=== PATIENT | male | born 1960 | race Caucasian/White ===

== ENCOUNTER 2017-03-20 06:05 | Day surgery (SDC) | payer OTHER ==
[2017-03-20] MEDS ORDERED: Lactated Ringers 1,000 ML IV SCH (07:00)
[2017-03-20] MEDS ORDERED: fentaNYL 100 MCG/2 ML SDV ONE (07:02)
[2017-03-20] MEDS ORDERED: Midazolam 1 MG/ML 2 ML SDV ONE (07:02)
[2017-03-20] MEDS ORDERED: Propofol 200 MG/20 ML SDV ONE (07:02)
[2017-03-20] MEDS ORDERED: Glycopyrrolate 0.2 MG/ML 2 ML SDV IVPUSH ONE (07:45)
--- NOTE | 2017-03-21 15:43 | OR ---
DATE OF PROCEDURE: 03/20/2017 PREOPERATIVE DIAGNOSIS: Laryngopharyngeal dysphagia. POSTOPERATIVE DIAGNOSES: 1. Laryngopharyngeal dysphagia without gross abnormalities in the larynx or pharynx. 2. Small hiatal hernia with mild gastroesophageal reflux disease. 3. Mild antral gastritis. OPERATIVE PROCEDURES: Esophagogastroduodenoscopy with; 1. Biopsies of esophagogastric junction for histologic evaluation. 2. Biopsies of antrum for CLOtest. ANESTHESIA: IV sedation. INDICATION FOR PROCEDURE: A 56-year-old male presenting with some intermittent laryngopharyngeal dysphagia. He has known history of gastroesophageal reflux disease along with Crohn disease. Presently, he is on Nexium 40 mg a day with generally good control of reflux symptoms. Plan is to proceed with an upper GI endoscopy with biopsies and/or dilation as indicated. Potential risks including bleeding and perforation were discussed, and the patient wishes to proceed. DETAILS OF PROCEDURE: The patient was taken to the operating room and placed in a left lateral decubitus position. After IV sedation was administered, the upper GI endoscope was passed orally through the length of the esophagus and into the stomach with retroflexion view of the fundus, and thereafter through the pyloric channel into the junction of the third and fourth portions of the duodenum. Findings included an entirely normal-appearing larynx and hypopharynx. The upper esophageal sphincter likewise was unremarkable, as was the esophageal body. At the EG junction, a small hiatal hernia was present. There was some slight upward extension of the gastroesophageal junction mucosal line above the upper gastric folds. No stricturing was present, i.e. there was no suggestion of any neoplastic change, and there was only mild inflammation grossly evident. Within the stomach, retroflexion confirmed a small hiatal hernia. Apart from that, there was some mild redness in the antral region of the stomach without erosions or ulcers. The pyloric channel and visualized portion of the duodenum were unremarkable. At this point, biopsies were obtained from the antrum and sent for CLOtest for H. pylori. Multiple biopsies had been obtained from esophagogastric junction and sent for histologic evaluation. Minimal bleeding from the biopsy sites was seen, and the procedure then concluded. There were no evident complications. The plan will be to have the patient continue the Nexium 40 mg a day. We will also set him up for x-ray swallow study and speech pathology evaluation for evaluation of the laryngopharyngeal dysphagia. Hugh Graham MD /[id number]
== END 2017-03-20 09:49 | disposition home or self-care (01) ==
LOC: JP.SDS 06:05
PROVIDERS: ATTEND Surgery
DX: K29.50 Unspecified chronic gastritis without bleeding (principal); K44.9 Diaphragmatic hernia without obstruction or gangrene; K21.9 Gastro-esophageal reflux disease without esophagitis; I12.9 Hypertensive chronic kidney disease with stage 1 through stage 4 chronic kidney disease, or unspecified chronic kidney disease; N18.9 Chronic kidney disease, unspecified; K59.09 Other constipation; F17.210 Nicotine dependence, cigarettes, uncomplicated; Z98.890 Other specified postprocedural states; Z90.49 Acquired absence of other specified parts of digestive tract
CPT/HCPCS: 43239; 87081; J2250; J2704; J3010; J7120; 88305; J3490

== ENCOUNTER 2019-11-07 14:28 | Emergency (ER) | payer OTHER ==
[2019-11-07] MEDS ORDERED: Lidocaine 1% with EPINEPHrine 1:100,000 50 ML MDV SUBCUT STA (16:13)
--- NOTE | 2019-11-07 16:40 | EDM.PDOC ---
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 he has had multiple boils in the past at this particular one was draining but now it is closed and is very painful he has not had any fevers Left Buttock Pain Score (Numeric/FACES): 8 - Related Data Allergies Allergy/AdvReac Type Severity Reaction Status Date / Time No Known Allergies Allergy Verified 11/07/19 15:37 Home Meds: Home Meds Esomeprazole [NexIUM] 40 mg PO DAILY 07/26/13 [History] Folic Acid 1 mg PO DAILY 07/26/13 [History] Lisinopril [Zestril] 5 mg PO DAILY 07/26/13 [History] Methotrexate Sodium [Methotrexate] 10 mg PO WEEKLY 07/26/13 [History] Adalimumab [Humira] 40 ml SQ .Q14DAY 03/18/17 [History] Cyanocobalamin (Vitamin B-12) [B-12] 1,000 mcg PO DAILY 03/18/17 [History] Vardenafil HCl [Levitra] 20 mg PO ASDIRECTED PRN 03/18/17 [History] Past Medical History HEENT History: Reports: Impaired Vision Other HEENT History: wears glasses Cardiovascular History: Reports: Hypertension Gastrointestinal History: Reports: Chronic Diarrhea, GERD, Other (See Below) Other Gastrointestinal History: Chrons Genitourinary History: Reports: Renal Calculus Musculoskeletal History: Reports: Arthritis Hematologic History: Reports: None Immunologic History: Reports: None Oncologic (Cancer) History: Reports: None Dermatologic History: Reports: Psoriasis - Infectious Disease History Infectious Disease History: Reports: Chicken Pox - Past Surgical History Head Surgeries/Procedures: Reports: None HEENT Surgical History: Reports: Oral Surgery, Tonsillectomy Cardiovascular Surgical History: Reports: None GI Surgical History: Reports: Appendectomy, Colonoscopy, Hernia, Inguinal, Hernia Repair/Other, Small Bowel, Other (See Below) Other GI Surgeries/Procedures: bowel resections r/t chrons Male Surgical History: Reports: Kidney Stone Extraction Musculoskeletal Surgical History: Reports: Arthroscopic Knee Dermatological Surgical History: Reports: Skin Biopsy Social & Family History - Tobacco Use Smoking Status *Q: Never Smoker Second Hand Smoke Exposure: No - Caffeine Use Caffeine Use: Reports: Coffee, Soda - Recreational Drug Use Recreational Drug Use: No ED ROS GENERAL - Review of Systems Review Of Systems: See Below Constitutional: Reports: No Symptoms Skin: Reports: Erythema, Wound ED EXAM, GENERAL - Physical Exam Exam: See Below Free Text/Narrative:: Examination of the buttocks reveals a large boil on the right gluteus eloina it is tender to touch warm to the touch ED I&D PROCEDURES - I&D Site: Right buttocks Skin prep: Isopropyl Alcohol (Alcohol) Local anesthesia - Lidocaine (Xylocaine): 1% with EPI Local Anesthetic Volume: 2cc Area Incised With: 11 Blade Drainage: Purulent, Large Amount Probed to Break Up Loculations: No Packed With: None Sterile Dressinx4(s) Complications: No Course - Vital Signs Last Recorded V/S: Last Vital Signs Temp 96.8 F L 11/07/19 15:41 Pulse 70 11/07/19 15:41 Resp 16 11/07/19 15:41 BP 137/83 11/07/19 15:41 Pulse Ox 98 11/07/19 15:41 - Orders/Labs/Meds Meds: Medications Discontinued Medications Generic Name Dose Route Start Last Admin Trade Name Sj PRN Reason Stop Dose Admin Lidocaine/Epinephrine 20 ml 11/07/19 16:13 11/07/19 16:18 Xylocaine 1% With Epinephrine 1:100,000 SUBCUT 11/07/19 16:14 20 ml NOW STA Administration Departure - Departure Time of Disposition: 16:39 Disposition: Home, Self-Care 01 Condition: Fair Clinical Impression: Boil of buttock - Discharge Information Instructions: Skin Abscess, [id number] Referrals: Domenico Hester MD [Primary Care Provider] - Additional Instructions: Take full course of antibiotics, try warm sits baths if possible, please followup with your primary care provider in 3-5 days if not better, please call return to the emergency department with worsening of symptoms. Sepsis Event Note (ED) - Evaluation Sepsis Screening Result: No Definite Risk - Focused Exam Vital Signs: Vital Signs Temp Pulse Resp BP Pulse Ox 11/07/19 15:41 96.8 F L 70 16 137/83 98 11/07/19 15:27 96.8 F L 70 16 137/83 98 - Assessment/Plan Plan: Assessment Acuity = acute Site and laterality = boil right buttock Etiology = unknown Manifestations = none Location of injury = Home Lab values = wound cultures pending Plan Placed on antibiotics of Keflex 500 mg p.o. 3 times daily follow-up primary care 3 to 5 days if no improvement This note was dictated using [employer] voice recognition software please call with any questions on syntax or grammar.
== END 2019-11-07 16:48 | disposition home or self-care (01) ==
LOC: JP.ED 14:28
DX: L02.32 Furuncle of buttock (principal); I10 Essential (primary) hypertension; Z79.899 Other long term (current) drug therapy
CPT/HCPCS: 10060; 87070; 87077; 87186; 87205; 99283-25

== ENCOUNTER 2020-11-07 22:56 | Day surgery (SDC) | payer OTHER ==
[2020-11-08] MEDS ORDERED: Glucagon,Human Recombinant 1 MG Vial IM ONE (01:00)
--- NOTE | 2020-11-08 01:04 | EDM.PDOC ---
ED HPI GENERAL MEDICAL PROBLEM - General Chief Complaint: Gastrointestinal Problem Stated Complaint: STEAK STUCK IN THROAT Time Seen by Provider: 11/08/20 00:59 Source of Information: Reports: Patient, RN Notes Reviewed History Limitations: Reports: No Limitations - History of Present Illness INITIAL COMMENTS - FREE TEXT/NARRATIVE: 60-year-old gentleman presents emergency department today with complaint of food bolus being caught in his throat, he was eating steak this evening this has happened before he has had an EGD with dilation in the past as well. He is able to swallow some secretions but the majority of it does come up - Related Data Allergies Allergy/AdvReac Type Severity Reaction Status Date / Time No Known Allergies Allergy Verified 11/08/20 00:47 Home Meds: Home Meds Esomeprazole [NexIUM] 40 mg PO DAILY 07/26/13 [History] Folic Acid 1 mg PO DAILY 07/26/13 [History] Lisinopril [Zestril] 5 mg PO DAILY 07/26/13 [History] Methotrexate Sodium [Methotrexate] 10 mg PO WEEKLY 07/26/13 [History] Adalimumab [Humira] 40 ml SQ .Q14DAY 03/18/17 [History] Cyanocobalamin (Vitamin B-12) [B-12] 1,000 mcg PO DAILY 03/18/17 [History] Vardenafil HCl [Levitra] 20 mg PO ASDIRECTED PRN 03/18/17 [History] Past Medical History HEENT History: Reports: Impaired Vision Other HEENT History: wears glasses Cardiovascular History: Reports: Hypertension Gastrointestinal History: Reports: Chronic Diarrhea, GERD, Other (See Below) Other Gastrointestinal History: crohns Genitourinary History: Reports: Renal Calculus Musculoskeletal History: Reports: Arthritis Hematologic History: Reports: None Immunologic History: Reports: None Oncologic (Cancer) History: Reports: None Dermatologic History: Reports: Psoriasis - Infectious Disease History Infectious Disease History: Reports: Chicken Pox - Past Surgical History HEENT Surgical History: Reports: Oral Surgery, Tonsillectomy GI Surgical History: Reports: Appendectomy, Colonoscopy, Esophageal Dilatation, Hernia, Inguinal, Hernia Repair/Other, Small Bowel, Other (See Below) Other GI Surgeries/Procedures: bowel resections x 3 r/t crohns Male Surgical History: Reports: Kidney Stone Extraction Musculoskeletal Surgical History: Reports: Arthroscopic Knee Dermatological Surgical History: Reports: Skin Biopsy Social & Family History - Tobacco Use Tobacco Use Status *Q: Current Every Day Tobacco User Years of Tobacco use: 20 Packs/Tins Daily: 0.5 - Caffeine Use Caffeine Use: Reports: Coffee, Soda - Alcohol Use Days Per Week of Alcohol Use: 7 Number of Drinks Per Day: 2 Total Drinks Per Week: 14 - Recreational Drug Use Recreational Drug Use: No ED ROS GENERAL - Review of Systems Review Of Systems: See Below Constitutional: Reports: No Symptoms Respiratory: Reports: No Symptoms Cardiovascular: Reports: No Symptoms GI/Abdominal: Reports: Difficulty Swallowing : Reports: No Symptoms ED EXAM, GI/ABD - Physical Exam Exam: See Below Text/Narrative:: I did have him take a small sip of ice water admit a portion of this did come back up but he was able to keep a portion of it and it passed Exam Limited By: No Limitations General Appearance: Alert, WD/WN, No Apparent Distress Respiratory/Chest: No Respiratory Distress Course - Vital Signs Last Recorded V/S: Last Vital Signs Temp 97.5 F 11/08/20 02:38 Pulse 75 11/08/20 04:34 Resp 17 11/08/20 04:34 BP 163/108 H 11/08/20 04:34 Pulse Ox 95 11/08/20 04:34 - Orders/Labs/Meds Orders: Active Orders 24 hr Category Date Time Status Patient Status [ADT] Routine ADT 11/08/20 06:19 Ordered Peripheral IV Care [RC] . DIRECTED Care 11/08/20 02:07 Active Sodium Chloride 0.9% [Saline Flush] Med 11/08/20 02:07 Active 10 ml FLUSH ASDIRECTED PRN Isolation [COMM] Stat Oth 11/08/20 03:40 Ordered Peripheral IV Insertion Adult [OM.PC] Urgent Oth 11/08/20 02:07 Ordered Medication Orders Sodium Chloride (Sodium Chloride 0.9% 10 Ml Syringe) 10 ml FLUSH ASDIRECTED PRN PRN Reason: Keep Vein Open Last Admin: 11/08/20 02:39 Dose: 10 ml Documented by: JOSELO Labs: Laboratory Tests 11/08/20 Range/Units 04:10 Influenza Type A RNA Negative (NEGATIVE) RSV RNA (INAAT) Negative (NEGATIVE) Influenza Type B RNA Negative (NEGATIVE) SARS-CoV-2 RNA (VICENTA) Negative (NEGATIVE) Meds: Medications Generic Name Dose Route Start Last Admin Trade Name Freq PRN Reason Stop Dose Admin Sodium Chloride 10 ml 11/08/20 02:07 11/08/20 02:39 Sodium Chloride 0.9% 10 Ml Syringe FLUSH 10 ml ASDIRECTED PRN Administration Keep Vein Open Discontinued Medications Generic Name Dose Route Start Last Admin Trade Name Freq PRN Reason Stop Dose Admin Glucagon 1 mg 11/08/20 01:00 11/08/20 01:19 Glucagon,Human Recombinant 1 Mg Vial IM 11/08/20 01:01 1 mg ONETIME ONE Administration Departure - Departure Time of Disposition: : Disposition: Still A Patient 30 Condition: Fair Clinical Impression: Dysphagia Qualifiers: Dysphagia type: unspecified Qualified Code(s): R13.10 - Dysphagia, unspecified - Discharge Information Instructions: Dysphagia Referrals: Domenico Hester MD [Primary Care Provider] - Forms: ED Department Discharge Sepsis Event Note (ED) - Evaluation Sepsis Screening Result: No Definite Risk - Focused Exam Vital Signs: Vital Signs Temp Pulse Resp BP Pulse Ox 11/08/20 04:34 75 17 163/108 H 95 11/08/20 02:38 97.5 F 89 20 172/107 H 97 11/08/20 00:51 97.6 F 75 16 181/104 H 97 11/08/20 00:47 97.6 F 75 16 97 - My Orders Last 24 Hours: My Active Orders 11/08/20 02:07 Peripheral IV Care [RC] . DIRECTED Sodium Chloride 0.9% [Saline Flush] 10 ml FLUSH ASDIRECTED PRN Peripheral IV Insertion Adult [OM.PC] Urgent 11/08/20 03:40 Isolation [COMM] Stat 11/08/20 06:19 Patient Status [ADT] Routine - Assessment/Plan Last 24 Hours: My Active Orders 11/08/20 02:07 Peripheral IV Care [RC] . DIRECTED Sodium Chloride 0.9% [Saline Flush] 10 ml FLUSH ASDIRECTED PRN Peripheral IV Insertion Adult [OM.PC] Urgent 11/08/20 03:40 Isolation [COMM] Stat 11/08/20 06:19 Patient Status [ADT] Routine Plan: Assessment Acuity = acute Site and laterality = dysphagia Etiology = probable food bolus Manifestations = none Location of injury = Home Lab values = none Plan Call discussed case Dr. Graham at 2:00 kindly agreed to come evaluate patient in the emergency department plan for EGD in the morning This note was dictated using [employer] voice recognition software please call with any questions on syntax or grammar.
[2020-11-08] MEDS ORDERED: Sodium Chloride 0.9% 10 ML Syringe FLUSH PRN (02:07)
[2020-11-08 05:23] LABS: CORONAVIRUS COVID-19 NAA NEGATIVE (NEGATIVE)
[2020-11-08] MEDS ORDERED: Propofol 200 MG/20 ML SDV ONE ×4 (06:58→08:23)
[2020-11-08] MEDS ORDERED: fentaNYL 100 MCG/2 ML SDV ONE (06:58)
[2020-11-08] MEDS ORDERED: Midazolam 1 MG/ML 2 ML SDV ONE (06:59)
[2020-11-08] MEDS ORDERED: Glycopyrrolate 0.2 MG/ML 2 ML SDV IV SCH (07:15)
[2020-11-08] MEDS ORDERED: Lactated Ringers 1,000 ML ONE (08:30)
--- NOTE | 2020-11-18 16:25 | OR ---
DATE OF PROCEDURE: 11/08/2020 SURGEON: Hugh Graham MD PREOPERATIVE DIAGNOSIS: Foreign body (meat) lodged within the distal esophagus. POSTOPERATIVE DIAGNOSES: 1. Foreign body (meat) lodged within the distal esophagus. 2. Esophageal stricture associated with large hiatal hernia. OPERATIVE PROCEDURES: Esophagogastroduodenoscopy with: 1. Removal of foreign body from distal esophagus (31374). 2. Dilation of esophageal stricture (61696). ANESTHESIA: IV sedation. INDICATIONS FOR PROCEDURE: A 60-year-old male presenting with some recurrent episodes of dysphagia and at this time has some meat lodged within the distal esophagus, presently has been on Nexium 40 mg a day and despite this, is having increasing bouts of esophageal stricturing. Plan is to proceed with upper endoscopy, removal of foreign body with biopsies and/or dilation of the area around the stricture. Potential risks including bleeding and perforation were discussed, and the patient wishes to proceed. DETAILS OF PROCEDURE: The patient was taken to the operative room and placed in the left lateral decubitus position. IV sedation was administered, after which the upper GI endoscope was passed orally through the length of the esophagus. In the distal esophagus, the patient was noted to have some aggregated meat, which was obstructing the outlet of the esophagus. This was removed by breaking this up and retrieving this sequentially with retrieval bags. Once we had enough of this removed, a guidewire could be passed across the stricture into the more distal stomach and with this we then passed initial 36-Tai[place]ese dilator. The gastroscope was then replaced after removing the dilator and wire and a small amount of retained food within the esophagus was then able to be pushed down into the stomach. The patient was noted to have a quite large hiatal hernia measuring around 5 cm. Remainder of the gastric and duodenal exams otherwise were unremarkable. At this point, guidewire was placed back into the stomach and the gastroscope removed. The esophagus was then further dilated with 39 followed by 42-Tai[place]ese Savary dilator over the wire. At that point, the procedure then concluded. It is notable that the patient's stricture was a fibrous type band uniform stricture suspicious for significant histologic abnormalities in terms of neoplastic change. The patient will be following up with Dr. Hester in 2 weeks. If over time, the patient has continued problems with the stricturing, he should likely be considered for a surgical anti- reflux procedure. An alternate approach at this point would be perhaps setting up for repeat endoscopy in 6 to 12 months to obtain full histologic examination and perhaps prophylactically dilate the esophagus at that time. Hugh Graham MD /[id number]
== END 2020-11-08 ==
LOC: JP.ED 22:56 → JP.SDS 11-08 07:00
PROVIDERS: ATTEND Surgery
DX: K22.2 Esophageal obstruction (principal); T18.120A Food in esophagus causing compression of trachea, initial encounter; K44.9 Diaphragmatic hernia without obstruction or gangrene; I10 Essential (primary) hypertension; F17.210 Nicotine dependence, cigarettes, uncomplicated; Z98.890 Other specified postprocedural states; Z79.899 Other long term (current) drug therapy; Z01.812 Encounter for preprocedural laboratory examination; Z20.822 Contact with and (suspected) exposure to COVID-19
CPT/HCPCS: 0241U; 43247; 43248; 96372; 99283; 99284; J1610; J2250; J2704; J3010; J3490; J7120

== ENCOUNTER 2023-01-21 09:37 | Emergency (ER) | payer SELFPAY ==
[2023-01-21] MEDS ORDERED: Sodium Chloride 0.9% 10 ML Syringe FLUSH PRN (10:00)
[2023-01-21] MEDS ORDERED: Sodium Chloride 0.9% 1,000 ML IV SCH ×2 (10:00→11:45)
[2023-01-21] MEDS ORDERED: Glucagon,Human Recombinant 1 MG Vial IM ONE (10:11)
[2023-01-21 10:12] LABS: BASOPHILS ABSOLUTE AUTO 0.04 K/uL (0.00-0.10); BASOPHILS PERCENT AUTO 0.7 % (0.1-1.3); EOSINOPHILS PERCENT AUTO 1.8 % (0.0-5.4); HEMATOCRIT 43.2 % (38.4-49.7); HEMOGLOBIN 14.5 g/dL (12.9-16.9); IMMATURE GRAN PERCENT AUTO 0.2 % (0.0-0.7); LYMPHOCYTES PERCENT AUTO 26.9 % (11.4-47.7); MEAN CORPUSCULAR HEMOGLOBIN 30.6 pg (31.6-35.5); MEAN CORPUSCULAR HGB CONC 33.6 g/dL (31.6-35.5); MEAN CORPUSCULAR VOLUME 91.1 fL (81.4-99.0); MONOCYTES ABSOLUTE AUTO 0.64 K/uL (0.20-0.90); MONOCYTES PERCENT AUTO 11.5 % (3.3-12.6); NEUTROPHILS ABSOLUTE AUTO 3.29 K/uL (1.0-7.6); NEUTROPHILS PERCENT AUTO 58.9 % (40.0-78.1); PLATELET COUNT,PLT 200 K/uL (130-375); RED BLOOD CELL COUNT 4.74 M/uL (4.14-5.76); WHITE BLOOD CELL COUNT,WBC 5.6 K/uL (3.2-11.0)
[2023-01-21 10:13] LABS: IMMATURE GRAN ABSOLUTE AUTO 0.01 K/uL (0.00-0.23)
[2023-01-21 10:28] LABS: ANION GAP 11.1 mmol/L (5.0-14.0); CALCIUM 8.9 mg/dL (8.5-10.1); CREATININE 1.9 mg/dL (0.8-1.3); EST CRCL DRUG DOSING (CG) 33.57 mL/min; POTASSIUM,K 4.8 mmol/L (3.6-5.2)
[2023-01-21] MEDS ORDERED: fentaNYL 50 MCG/ML SDV ONE (11:43)
[2023-01-21] MEDS ORDERED: Midazolam 1 MG/ML 2 ML SDV ONE (11:43)
[2023-01-21] MEDS ORDERED: Propofol 200 MG/20 ML SDV ONE (11:43)
== END 2023-01-21 12:47 | disposition home or self-care (01) ==
LOC: JP.ED 09:37
DX: T18.120A Food in esophagus causing compression of trachea, initial encounter (principal); K50.90 Crohn's disease, unspecified, without complications; E86.0 Dehydration; N17.9 Acute kidney failure, unspecified; I12.9 Hypertensive chronic kidney disease with stage 1 through stage 4 chronic kidney disease, or unspecified chronic kidney disease; N18.32 Chronic kidney disease, stage 3b; Z79.899 Other long term (current) drug therapy; Z20.822 Contact with and (suspected) exposure to COVID-19
CPT/HCPCS: 36415; 80048; 85025; 87635; 96360; 96372; 99283; J1610; J3490; J7030; J2250; J2704; J3010; U0002

== ENCOUNTER 2024-03-05 11:53 | Emergency (ER) | payer MEDICAID ==
[2024-03-05] MEDS: Magnesium Sulfate/Water Premix 2 GM in Premix Bag 1 BAG IV ONE (13:04)
[2024-03-05] MEDS: Magnesium Oxide 400 MG Tab PO ONE (13:05)
== END 2024-03-05 15:46 | disposition home or self-care (01) ==
LOC: JP.ED 11:53
DX: E83.42 Hypomagnesemia (principal); I10 Essential (primary) hypertension; Z90.49 Acquired absence of other specified parts of digestive tract; Z79.899 Other long term (current) drug therapy
CPT/HCPCS: 36415; 83735; 96365; 96366; 99283; A9270; J3475